=== PATIENT | male | born 1950 | race Caucasian/White ===

== ENCOUNTER 2017-04-03 20:30 | Observation (INO) | payer OTHER ==
--- NOTE | 2017-04-03 20:40 | PDOC ---
History of Present Illness - General History Source: Patient, Spouse Exam Limitations: No Limitations - History of Present Illness Initial Comments: 04/03/17 20:47 The patient is a 66 year old male, with a significant past medical history of insulin dependent diabetes and UT (years ago) who presents to the emergency department with acute sudden change in mental status. The patients while at dinner the patient was not speaking in complete sentences and not acting his baseline. also reports was driving erratically, just prior to presentation. He denies any complaints at this time. This HPI is limited to the patients AMS and is unable to give a full history. Allergies: NKA Past surgical history: None reported. Social History: Nonsmoker. Denies EtOH use and recreational drug use. Primary Care Physician: <Ranjit Hearn - Last Filed: 04/03/17 20:47> <Marlon Holden - Last Filed: 04/04/17 03:59> - General Chief Complaint: Altered Mental Status Stated Complaint: ALTERED MENTAL STATUS Time Seen by Provider: 04/03/17 20:39 Past History <Ranjit Hearn - Last Filed: 04/03/17 20:47> - Past Medical History Anemia: No Asthma: No Cancer: No Cardiac Disorders: Yes (UT-DX 2008) CVA: No COPD: No CHF: No Dementia: No Diabetes: Yes (IDDM-DX 1993) GI Disorders: No Disorders: No HTN: No Hypercholesterolemia: Yes (DX 2008) Liver Disease: No Seizures: No Thyroid Disease: No - Surgical History Abdominal Surgery: No Appendectomy: No Cardiac Surgery: No Cholecystectomy: No Lung Surgery: No Neurologic Surgery: No Orthopedic Surgery: No - Psycho/Social/Smoking Cessation Hx Smoking History: Former smoker Have you smoked in the past 12 months: No Number of Cigarettes Smoked Daily: 40 If you are a former smoker, when did you quit?: 2002 Hx Alcohol Use: No Drug/Substance Use Hx: No Substance Use Type: None Hx Substance Use Treatment: No <Marlon Holden - Last Filed: 04/04/17 03:59> - Past Medical History Allergies/Adverse Reactions: Allergies Allergy/AdvReac Type Severity Reaction Status Date / Time bacitracin Allergy Intermediate Rash Verified 12/21/14 18:00 Home Medications: Ambulatory Orders Canagliflozin [Invokana] 300 mg PO DAILY 04/04/17 Insulin Degludec [Tresiba Flextouch U-100] 16 unit SQ DAILY 04/04/17 Linagliptin/Metformin HCl [Jentadueto 2.5 mg-1000 mg Tab] 1 each PO BID Pioglitazone HCl 30 mg PO DAILY 04/04/17 Tamsulosin HCl 0.4 mg PO DAILY 04/04/17 Review of Systems - Review of Systems Able to Perform ROS?: No (AMS) <Ranjit Hearn - Last Filed: 04/03/17 20:47> *Physical Exam - Physical Exam Comments: 04/03/17 20:47 GENERAL: The patient is in no acute distress. HEAD: Normal with no signs of trauma. EYES: PERRLA, EOMI, sclera anicteric, conjunctiva clear. ENT: Ears normal, nares patent, oropharynx clear without exudates. Moist mucous membranes. NECK: Normal range of motion, supple without lymphadenopathy, JVD, or masses. LUNGS: Breath sounds equal, clear to auscultation bilaterally. No wheezes, and no crackles. HEART: Regular rate and rhythm, normal S1 and S2 without murmur, rub or gallop. ABDOMEN: Soft, nontender, normoactive bowel sounds. No guarding, no rebound. No masses palpable. EXTREMITIES: Normal range of motion, no edema. No clubbing or cyanosis. No erythema, or tenderness. NEUROLOGICAL: Cranial nerves II through XII grossly intact. Normal speech. No focal neurological deficits. 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 Follows commands and recognizes objects. Dysarthric in his speech. MUSCULOSKELETAL: Back non-tender to palpation, no CVA tenderness SKIN: Warm, Dry, normal turgor, no rashes or lesions noted. <Ranjit Hearn - Last Filed: 04/03/17 20:47> ED Treatment Course - LABORATORY CBC & Chemistry Diagram: 04/03/17 20:30 04/03/17 20:30 <Ranjit Hearn - Last Filed: 04/03/17 20:47> - LABORATORY CBC & Chemistry Diagram: 04/03/17 20:30 04/03/17 20:30 - RADIOLOGY Radiology Studies Ordered: Category Date Time Status HEAD CT (STROKE) [CT] Stat CT Scan 04/03/17 20:37 Ordered CHEST X-RAY PORTABLE* [RAD] Stat Radiology 04/03/17 20:37 Ordered <Marlon Holden - Last Filed: 04/04/17 03:59> Medical Decision Making - Medical Decision Making 04/03/17 21:34 meds: pioglitazone canagliflozin linagliptin, metformin tamsulosin 04/04/17 03:55 procedure--LP, risk & benefits explained, consent obtained, sterile technique, 5 cc clear fluid to lab in 4 tubes, hemostasis EKG--sinus at 93, nl axis, nl intervals, no acute ischemic findings to enable work-up, patient administered halodol + ativan a/p delerium without cause apparent MS improved after haldol/ aivan--? was this a non-convulsive sz requires admission for observaton and continuing workup <Marlon Holden - Last Filed: 04/04/17 03:59> *DC/Admit/Observation/Transfer - Attestations Scribe Attestion: 04/03/17 20:47 Documentation prepared by Ranjit Hearn, acting as medical registrar for Marlon Holden MD. <Ranjit Hearn - Last Filed: 04/03/17 20:47> - Discharge Dispostion Admit: Yes <Marlon Holden - Last Filed: 04/04/17 03:59> Diagnosis at time of Disposition: Delirium - Discharge Dispostion Condition at time of disposition: Stable - Referrals
[2017-04-03 20:48] VITALS: BMI 28.5
[2017-04-03 20:52] LABS: RDW 13.4 % (11.9-15.9); WHITE BLOOD COUNT 7.4 K/mm3 (4.0-10.8)
[2017-04-03 20:55] LABS: BASOPHIL 1.3 % (0-2.0); EOSINOPHIL 2.2 % (0-4.5); MCH 28.4 pg (25.7-33.7); MCHC 35.1 g/dl (32.0-35.9); MEAN CELL VOLUME 80.9 fl (80-96); MEAN PLT VOLUME 8.9 fl (7.5-11.1); NEUTROPHILS 52.7 % (42.8-82.8); PLATELET COUNT 242 K/MM3 (134-434)
[2017-04-03 20:59] LABS: INR 0.93 (0.82-1.09); PROTHROMBIN TIME (PATIENT) 10.4 SEC (10.2-13.0)
[2017-04-03 21:05] LABS: ALBUMIN 4.2 g/dl (3.5-5.0); ALK PHOS 49 U/L (32-92); ANION GAP 6 (8-16); BILIRUBIN,TOTAL 0.6 mg/dl (0.2-1.0); CO2 22 mmol/L (22-28); GLUCOSE,RANDOM 236 mg/dl (74-106); SGOT/AST 28 U/L (10-42); SGPT/ALT 21 U/L (10-40); TOT PROT 6.9 g/dl (6.4-8.3)
[2017-04-03 21:23] LABS: TROPONIN I (DFP) 0.04 ng/ml (0.03-0.50)
[2017-04-03 21:28] LABS: PH,URINE 5.5 (4.5-8); URINE APPEARANCE Clear; URINE BILIRUBIN Negative (NEGATIVE); URINE BLOOD Negative (NEGATIVE); URINE COLOR YELLOW; URINE GLUCOSE (UA) 2+ (NEGATIVE); URINE KETONE Negative (NEGATIVE); URINE LEUK ESTERASE Negative (NEGATIVE); URINE NITRITE Negative (NEGATIVE); URINE PROTEIN Negative (NEGATIVE); URINE UROBILINOGEN 0.2 E.U/dl (0.2-1.0)
[2017-04-03] MEDS ORDERED: LIDOCAINE HCL 2% (20ML MULTI-DOSE VIAL) NR ONE (22:04)
[2017-04-03] MEDS ORDERED: HALOPERIDOL LACTATE 5 MG/ML IVPUSH ONE (22:41)
[2017-04-03] MEDS ORDERED: LORAZEPAM CARPU-JECT 2 MG/ML DISP.SYRIN IVPUSH ONE (22:41)
[2017-04-03] MEDS ORDERED: HALOPERIDOL LACTATE 5 MG/ML ONE (22:48)
[2017-04-03] MEDS ORDERED: LORAZEPAM CARPU-JECT 2 MG/ML DISP.SYRIN ONE (22:49)
[2017-04-03 23:20] LABS: URINE MARIJUANA THC NEGATIVE ng/ml (CUTOFF=50)
[2017-04-03 23:21] LABS: GLUCOSE,CSF 121 mg/dL (50-80)
[2017-04-04 00:02] LABS: CSF APPEARANCE CLEAR; CSF COLOR COLORLESS; CSF RBC 82
[2017-04-04 00:03] LABS: CSF APPEARANCE CLEAR; CSF COLOR COLORLESS; CSF RBC 8
[2017-04-04] MEDS ORDERED: HALOPERIDOL LACTATE 5 MG/ML IVPUSH ONE (00:12)
[2017-04-04] MEDS ORDERED: LORAZEPAM CARPU-JECT 2 MG/ML DISP.SYRIN IVPUSH ONE ×2 (00:13)
[2017-04-04] MEDS ORDERED: HALOPERIDOL LACTATE 5 MG/ML ONE (00:24)
[2017-04-04] MEDS ORDERED: LORAZEPAM CARPU-JECT 2 MG/ML DISP.SYRIN ONE (00:24)
[2017-04-04] MEDS ORDERED: SODIUM CHLORIDE 1,000 ML IV SCH (01:30)
[2017-04-04] MEDS ORDERED: ZOLPIDEM TARTRATE 5 MG TABLET PO ONE (03:08)
[2017-04-04] MEDS ORDERED: ZOLPIDEM TARTRATE 5 MG TABLET ONE (03:10)
[2017-04-04 07:11] VITALS: BP 112/62; PULSE 66; TEMP 97.5
--- NOTE | 2017-04-04 08:26 | HP ---
CHIEF COMPLAINT: episode of PCP: [employer]: Samara HISTORY OF PRESENT ILLNESS: This is a 66yo man with PMH of diabetes, BPH and HLD who was brought to ED by for confusion and balance disturbances. The states on 04/03 in the afternoon, the patient took a shower, put on pajamas and went to bed. He woke up after approximately 2 hours and had dinner. states that patient drove to get sushi but did not put on any footwear. She states he was driving erratically on the way home from getting dinner. Upon arriving home, the patient started speaking about a trip to [place] [facility] course was notable for: (1) CTH (-) (2) LP- slightly elevated protein and glucose (3) Glucose- 236 Recent Travel: denies PAST MEDICAL HISTORY: see HPI PAST SURGICAL HISTORY: see HPI Social History: Smoking: denies Alcohol: denies Drugs: denies Family History: Allergies bacitracin Allergy (Intermediate, Verified 12/21/14 18:00) Rash HOME MEDICATIONS: Home Medications 3 Medication Instructions Recorded Canagliflozin [Invokana] 300 mg PO DAILY 04/04/17 Insulin Degludec [Tresiba 16 unit SQ DAILY 04/04/17 Flextouch U-100] Linagliptin/Metformin HCl 1 each PO BID 04/04/17 [Jentadueto 2.5 mg-1000 mg Tab] Pioglitazone HCl 30 mg PO DAILY 04/04/17 Tamsulosin HCl 0.4 mg PO DAILY 04/04/17 REVIEW OF SYSTEMS CONSTITUTIONAL: Absent: fever, chills, diaphoresis, generalized weakness, malaise, loss of appetite, weight change HEENT: Absent: rhinorrhea, nasal congestion, throat pain, throat swelling, difficulty swallowing, mouth swelling, ear pain, eye pain, visual changes CARDIOVASCULAR: Absent: chest pain, syncope, palpitations, irregular heart rate, lightheadedness , peripheral edema RESPIRATORY: Absent: cough, shortness of breath, dyspnea with exertion, orthopnea, wheezing, stridor, hemoptysis GASTROINTESTINAL: Absent: abdominal pain, abdominal distension, nausea, vomiting, diarrhea, constipation, melena, hematochezia GENITOURINARY: Absent: dysuria, frequency, urgency, hesitancy, hematuria, flank pain, genital pain MUSCULOSKELETAL: Absent: myalgia, arthralgia, joint swelling, back pain, neck pain SKIN: Absent: rash, itching, pallor HEMATOLOGIC/IMMUNOLOGIC: Absent: easy bleeding, easy bruising, lymphadenopathy, frequent infections ENDOCRINE: Absent: unexplained weight gain, unexplained weight loss, heat intolerance, cold intolerance NEUROLOGIC: Absent: headache, focal weakness or paresthesias, dizziness, unsteady gait, seizure, mental status changes, bladder or bowel incontinence PSYCHIATRIC: Absent: anxiety, depression, suicidal or homicidal ideation, hallucinations. PHYSICAL EXAMINATION Vital Signs - 24 hr 3 04/04/17 04/04/17 04/04/17 01:18 01:20 05:20 Temperature 98.1 F 98.1 F 98.1 F Pulse Rate 83 83 83 Respiratory 17 Rate Blood Pressure 109/61 109/61 109/61 3 04/04/17 07:09 Temperature 97.5 F L Pulse Rate 66 Respiratory Rate Blood Pressure 112/62 GENERAL: The patient is awake, alert, and fully oriented, in no acute distress. HEAD: Normal with no signs of trauma. EYES: PERRL, extraocular movements intact, sclera anicteric, conjunctiva clear. NECK: Trachea midline, full range of motion, supple. LUNGS: Breath sounds equal, clear to auscultation bilaterally, no wheezes, no crackles, no accessory muscle use. HEART: Regular rate and rhythm, S1, S2 without murmur, rub or gallop. ABDOMEN: Soft, nontender, nondistended, normoactive bowel sounds, no guarding, no rebound, no hepatosplenomegaly, no masses. EXTREMITIES: 2+ pulses, warm, well-perfused, no edema. NEUROLOGICAL: Cranial nerves II through XII grossly intact. Normal speech, gait steady. Tandem gait steady. PSYCH: Normal mood, normal affect. SKIN: Warm, dry, normal turgor, no rashes or lesions noted. Laboratory Results - last 24 hr 3 04/04/17 08:00 POC Glucometer 112 ASSESSMENT/PLAN: A: 66 yo man with resolved delirium. CT (-), LP (-), labs unremarkable. Medication review done- unprescribed zolpidem use or atorvastatin with side effect of acute confusion. Pt currently at baseline. P: 1. Delirium - resolved at present - likely due to lipitor or ambien - d/c Lipitor - hold Ambien 2. DM - well controlled - continue current regimen 3. F/E/N - diabetic diet - replete prn 4. PPX - OOB - SCD Dispo- observation for acute issue Code Status- FULL CODE Visit type - Emergency Visit Emergency Visit: Yes ED Registration Date: 04/04/17 Care time: The patient presented to the Emergency Department on the above date and was hospitalized for further evaluation of their emergent condition. - New Patient This patient is new to me today: Yes Date on this admission: 04/04/17 - Critical Care Critical Care patient: No
[2017-04-04] MEDS ORDERED: TAMSULOSIN HCL 0.4 MG CAP.ER.24H (FP) PO SCH (08:30)
[2017-04-04] MEDS ORDERED: INSULIN DEGLUDEC SQ SCH (10:00)
[2017-04-04] MEDS ORDERED: PNEUMOC 13-VAL CONJ-DIP CRM/PF 0.5 ML DISP.SYRIN IM ONE (10:00)
--- NOTE | 2017-04-04 11:37 | DS ---
Physical Exam: SUBJECTIVE: Patient seen and examined at bedside with spouse present. OBJECTIVE: Vital Signs Period Temp Pulse Resp BP Sys/[place] Pulse Ox Last 24 Hr 97.5 F-98.1 F 66-83 - 109-112/61-62 97 PHYSICAL EXAM GENERAL: The patient is awake, alert, and fully oriented, in no acute distress. HEAD: Normal with no signs of trauma. EYES: PERRL, extraocular movements intact, sclera anicteric, conjunctiva clear. NECK: Trachea midline, full range of motion, supple. LUNGS: Breath sounds equal, clear to auscultation bilaterally, no wheezes, no crackles, no accessory muscle use. HEART: Regular rate and rhythm, S1, S2 without murmur, rub or gallop. ABDOMEN: Soft, nontender, nondistended, normoactive bowel sounds, no guarding, no rebound, no hepatosplenomegaly, no masses. EXTREMITIES: 2+ pulses, warm, well-perfused, no edema. NEUROLOGICAL: Cranial nerves II through XII grossly intact. Normal speech, gait steady. Tandem gait steady. PSYCH: Normal mood, normal affect. SKIN: Warm, dry, normal turgor, no rashes or lesions noted. LABS Laboratory Results - last 24 hr 04/04/17 08:00 POC Glucometer 112 HOSPITAL COURSE: Date of Admission:04/04/17 Date of Discharge: 04/04/17 Assessment: 66 yo man with resolved delirium. CT (-), LP (-), labs unremarkable. Medication review done- unprescribed zolpidem use or atorvastatin with side effect of acute confusion. Pt currently at baseline. P: 1. Delirium - resolved at present - likely due to lipitor or ambien - CT scan with mild volume loss. No acute intracranial pathology identified. - CXR- No active pulmonary disease. - d/c Lipitor - hold Ambien 2. DM - well controlled - continue current regimen Minutes to complete discharge: 30 Discharge Summary Reason For Visit: DELIRIUM Current Active Problems Delirium (Acute) Condition: Stable - Instructions Referrals: Bassam Dejesus MD [Primary Care Provider] - - Home Medications Comprehensive Discharge Medication List: Ambulatory Orders Canagliflozin [Invokana] 300 mg PO DAILY 04/04/17 Insulin Degludec [Tresiba Flextouch U-100] 16 unit SQ DAILY 04/04/17 Linagliptin/Metformin HCl [Jentadueto 2.5 mg-1000 mg Tab] 1 each PO BID Pioglitazone HCl 30 mg PO DAILY 04/04/17 Tamsulosin HCl 0.4 mg PO DAILY 04/04/17 This patient is new to me today: Yes Date on this admission: 04/04/17 Emergency Visit: Yes ED Registration Date: 04/04/17 Care time: The patient presented to the Emergency Department on the above date and was hospitalized for further evaluation of their emergent condition. Critical Care patient: No - Discharge Referral Referred to [facility] Yes Physician Referral: Bassam Dejesus MD (Int Med)
--- NOTE | 2017-04-04 18:50 | EKG ---
Test Reason : Blood Pressure : / mmHG Vent. Rate : 093 BPM Atrial Rate : 093 BPM P-R Int : 212 ms QRS Dur : 064 ms QT Int : 312 ms P-R-T Axes : 045 -28 085 degrees QTc Int : 387 ms SINUS RHYTHM WITH 1ST DEGREE A-V BLOCK LOW VOLTAGE QRS CANNOT RULE OUT ANTEROSEPTAL INFARCT POOR R WAVE PROGRESSION POSSIBLE INFERIOR INFARCT , AGE UNDETERMINED ABNORMAL ECG WHEN COMPARED WITH ECG OF 11-OCT-1997 08:38, MD INTERVAL HAS INCREASED MINIMAL CRITERIA FOR ANTEROSEPTAL INFARCT ARE NOW PRESENT POSSIBLE INFERIOR INFARCT IS NOW PRESENT Confirmed by ALICIA BARBER MD ([id number] on 04/04/2017 6:50:18 PM Referred By: DR VALDES Confirmed By:ALICIA BARBER MD
== END 2017-04-04 13:39 | disposition home or self-care (01) ==
LOC: FER 20:30 → INTOOBSV 04-04 00:46 → FM/S 04-04 00:46
PROVIDERS: ADMIT Internal Medicine; ATTEND Nurse Practitioner Family
PROC: 3E033GC Introduction of Other Therapeutic Substance into Peripheral Vein, Percutaneous Approach (ICD-10-PCS; principal; 2017-04-04)
PROC: 3E0337Z Introduction of Electrolytic and Water Balance Substance into Peripheral Vein, Percutaneous Approach (ICD-10-PCS; 2017-04-04)
DX: R41.0 Disorientation, unspecified (principal); E11.9 Type 2 diabetes mellitus without complications; E78.00 Pure hypercholesterolemia, unspecified; Z79.4 Long term (current) use of insulin; Z87.891 Personal history of nicotine dependence; Z88.1 Allergy status to other antibiotic agents
CPT/HCPCS: 36415; 70450-TC; 71010-TC; 80053; 80307; 81003; 82550; 82945; 84157; 84484; 85025; 85610; 85730; 87070; 87205; 89050; 93005; 99283-25; G0378

== ENCOUNTER 2021-10-16 04:20 | Day surgery (SDC) | payer OTHER, MEDICARE ==
[2021-10-11 12:14] VITALS: BMI 27.6
[~2021-10-16 04:20] MED LIST: BUPIVACAINE HCL/PF 0.5% (5MG/ML) 10 ML VIAL IJ ONE; LIDOCAINE HCL 1%, 10 MG/ML (20ML VIAL) NR ONE
[2021-10-16] MEDS ORDERED: DEXAMETHASONE SOD PHOSPHATE 4 MG/1 ML VIAL ONE (09:54)
[2021-10-16] MEDS ORDERED: PROPOFOL 20 ML ONE ×2 (11:41)
[2021-10-16] MEDS ORDERED: MIDAZOLAM HCL 2 MG/2 ML SINGLE DOSE VIAL ONE (11:42)
[2021-10-16] MEDS ORDERED: GENTAMICIN SO4 80 MG/2 ML VIAL IVPB ONE (11:52)
[2021-10-16] MEDS ORDERED: BUPIVACAINE HCL/PF 0.5% (5MG/ML) 10 ML VIAL IJ ONE (11:55)
[2021-10-16] MEDS ORDERED: LIDOCAINE HCL 1%, 10 MG/ML (20ML VIAL) NR ONE (11:55)
[2021-10-16] MEDS ORDERED: ONDANSETRON 4 MG/2 ML VIAL ONE (12:11)
[2021-10-16 14:45] VITALS: BP 125/77; PULSE 69; TEMP 97.8
== END 2021-10-16 14:20 | disposition home or self-care (01) ==
LOC: JASU-SURG 04:20
PROVIDERS: ATTEND Podiatrist Foot & Ankle Surgery
PROC: 0QBQ0ZZ Excision of Right Toe Phalanx, Open Approach (ICD-10-PCS; principal; 2021-10-16 10:30)
DX: E11.621 Type 2 diabetes mellitus with foot ulcer (principal); M86.8X7 Other osteomyelitis, ankle and foot; L97.519 Non-pressure chronic ulcer of other part of right foot with unspecified severity; E11.69 Type 2 diabetes mellitus with other specified complication; Z79.84 Long term (current) use of oral hypoglycemic drugs
CPT/HCPCS: 73630-TC-RT-FY; 82962; 87070; 87075; 87205

== ENCOUNTER 2022-01-08 07:37 | Day surgery (SDC) | payer OTHER, MEDICARE ==
[2022-01-06 14:27] VITALS: BMI 27.6
[2022-01-08 09:36] VITALS: BP 109/70; PULSE 70; TEMP 97.6
== END 2022-01-08 09:36 | disposition home or self-care (01) ==
LOC: FASU-ENDO 07:37
PROVIDERS: ATTEND Internal Medicine Gastroenterology
PROC: 0DBL8ZX Excision of Transverse Colon, Via Natural or Artificial Opening Endoscopic, Diagnostic (ICD-10-PCS; principal; 2022-01-08 08:38)
DX: D12.3 Benign neoplasm of transverse colon (principal); Z86.010 Personal history of colon polyps
CPT/HCPCS: 82962; 88305-TC

== ENCOUNTER 2023-09-25 10:35 | Emergency (ER) | payer OTHER, MEDICARE ==
[2023-09-25 10:51] VITALS: BP 134/76; PULSE 71; RESP 20; TEMP 97.6; BMI 27.6
[2023-09-25 14:41] LABS: HEMATOCRIT 44.4 % (35.4-49); HEMOGLOBIN 15.1 G/dL (11.7-16.9); MCH 28.4 pg (25.7-33.7); MEAN CELL VOLUME 83.4 fl (80-96); PLATELET COUNT 208.7 10^3/uL (134-434); RBC 5.32 10^6/uL (4.00-5.60); RDW 15.3 % (11.9-15.9); WHITE BLOOD COUNT 8.7 10^3/uL (4.0-10.8)
[2023-09-25 14:50] LABS: ALBUMIN 4.1 g/dl (3.4-5.0); BILIRUBIN,TOTAL 0.7 mg/dl (0.2-1); CALCIUM 10.2 mg/dl (8.5-10.1); POTASSIUM 4.7 mmol/L (3.5-5.1)
[2023-09-25 14:55] LABS: INR 1.06 (0.83-1.09); PROTHROMBIN TIME (PATIENT) 12.3 SEC (9.7-13.0)
[2023-09-25 16:56] LABS: PLATELET ESTIMATE ADEQUATE
== END 2023-09-25 16:45 | disposition home or self-care (01) ==
LOC: FER 10:35
DX: R22.41 Localized swelling, mass and lump, right lower limb (principal); M25.561 Pain in right knee; I82.411 Acute embolism and thrombosis of right femoral vein; I82.431 Acute embolism and thrombosis of right popliteal vein; I82.441 Acute embolism and thrombosis of right tibial vein
CPT/HCPCS: 36415; 80053; 85027; 85610; 93005; 93971-TC; 99285-25